=== PATIENT | female | born 1965 | race Two or more races ===

== ENCOUNTER 2017-12-05 13:06 | Emergency (ER) | payer OTHER ==
[~2017-12-05] VITALS: Ht 154.9 cm; Wt 65.5 kg
[2017-12-05 14:49] LABS: HCG UR SG 1.007 (1.003-1.030)
[2017-12-05 15:04] LABS: CULTURE INDICATED? YES; MICROSCOPIC INDICATED
[2017-12-05 15:28] VITALS: BP 138/92
== END 2017-12-05 15:30 | disposition home or self-care (01) ==
LOC: ED 14:30
DX: R30.0 Dysuria (principal)
CPT/HCPCS: 81001; 81025; 87086; 99284